=== PATIENT | female | born 1990 | race Caucasian/White ===

== ENCOUNTER 2020-03-29 02:45 | Emergency (ER) | payer SELFPAY ==
--- NOTE | ~2020-03-29 | CT_ITS ---
EXAMINATION: CT abdomen pelvis w con DATE: 03/29/2020 03:46 INDICATION: Abdomen pain TECHNIQUE: Computed tomography (CT) of the abdomen and pelvis was performed with 100 cc Omnipaque 350 intravenous contrast. The dose-length product was 343.40 mGy-cm. Automated exposure control and iter ative reconstruction technique were employed. COMPARISON: CT dated 05/16/2016. FINDINGS: Lung bases are unremarkable. No significant pleural or pericardial effusion. Heart size nor mal. Mild gallbladder distention. No secondary findings to suggest cholecystitis. Small subcentimeter hypodensity right hepatic lobe, most likely benign. The spleen, pancreas, adrenal glands are unremar kable. There are bilateral renal cysts. Nonobstructive bowel gas pattern. No significant vascular abn ormality. No lymphadenopathy. Bladder dawson mildly prominent, likely due to underdistention. Cystitis less favored. No free air or free fluid. IMPRESSION: 1. Mild gallbladder distention, nonspecific. No secondary findings to suggest cholecystitis. Correlat e clinically. 2: Mild bladder wall prominence which is most likely due to underdistention rather than cystitis. Reviewed, dictated and finalized at location A. CE ENGINEER IMPRESSION: 1. Mild gallbladder distention, nonspecific. No secondary findings to suggest c holecystitis. Correlate clinically. 2: Mild bladder wall prominence which is most likely due to underdistention rat her than cystitis.
[2020-03-29 02:49] VITALS: BP 136/86; PULSE 97; RESP 12; TEMP 36.4; O2SAT 97
[2020-03-29] MEDS: ONDANSETRON INJ 4 MG/2 ML VIAL IV PUSH (03:15)
[2020-03-29] MEDS: MORPHINE SULFATE (*CRX) 4 MG/ML INJ IV PUSH (03:15)
[2020-03-29] MEDS: SODIUM CHLORIDE 0.9% IV 1,000 ML 999 ML IV CONT (03:15)
[2020-03-29 03:16] LABS: Basophils Absolute Auto 0.1 K/mm3 (0.0-0.1); Basophils Percent Auto 0.6 % (0.2-1.2); Eosinophils Absolute Auto 0.3 K/mm3 (0-0.3); Eosinophils Percent Auto 3.3 % (0-4.4); Hematocrit 45.7 % (37.0-47.0); Immature Granulocyte Absolute 0.02 K/mm3 (0.00-0.031); Immature Granulocyte Percent A 0.2 % (0-0.5); Lymphocytes Absolute Auto 4.14 K/mm3 (0.9-3.2); Lymphocytes Percent Auto 42.6 % (18.3-44.2); Mean Corpuscular Hemoglobin 33.1 pg (26-34); Mean Corpuscular Volume 94.4 fl (80-100); Mean Platelet Volume 8.5 fl (7.4-10.4); Monocytes Absolute Auto 0.6 K/mm3 (0.1-0.6); Monocytes Percent Auto 6.4 % (2.6-8.5); Neutrophils Absolute Auto 4.6 K/mm3 (1.3-6.7); Neutrophils Percent Auto 46.9 % (45.5-73.1); Platelet Count Result 320 k/mm3 (150-375); Red Blood Count 4.84 M/mm3 (4.2-5.4); Red Cell Distribution Width 11.6 % (11.5-14.5); White Blood Count 9.7 K/mm3 (4.5-10.0)
[2020-03-29 03:32] LABS: Alanine Aminotransferase 32 U/L (4-35); Albumin Level 4.6 g/dL (3.5-5.1); Alkaline Phosphatase 68 U/L (38-126); Anion Gap 9 mmol/L (8-16); Aspartate Amino Transferase 34 U/L (14-36); Bilirubin,Total 1.2 mg/dL (0.2-1.3); Blood Urea Nitrogen 14 mg/dL (7-17); Calcium 10.2 mg/dL (8.4-10.2); Carbon Dioxide 28 mmol/L (22-30); Chloride 101 mmol/L (98-107); Estimated CRCL calculation 88 ml/min; Estimated Glomerular Filt Rate > 60; Glucose 104 mg/dL (65-105); Lipase 99 U/L (23-300); Sodium 138 mmol/L (137-145)
[2020-03-29 03:47] LABS: Add Urine Microscopic? YES; Amorphous Sediment Urine Few; Appearance Urine Cloudy (Clear); Bacteria Urine Trace /hpf; Bilirubin Urine Negative (Negative); Blood Urine Negative (Negative); Color Urine Yellow (Yellow); Glucose Urine UA Negative (Negative); Ketones Urine Negative (Negative); Leukocyte Esterase Ur Negative LEU/UL (Negative); Nitrate Urine Negative (Negative); Protein Urine Negative (Negative); RBC Urine 0-2 /hpf (0-2); Squamous Epithelial Cell Urine Few /hpf (Few); Urobilinogen Urine Negative mg/dL (<2.0); WBC Urine 0-3 /hpf
--- NOTE | 2020-03-29 04:17 | ED.GENADULT ---
HPI - General Adult General Chief complaint: Abdominal Pain Stated complaint: Flank/abd pain Time Seen by Provider: 03/29/20 03:00 History of Present Illness HPI narrative: Patient 29-year-old female who presents the emergency department with chief complaint of right flank and right upper quadrant pain. The patient states the pain began this evening states that earlier tonight she ate a cheeseburger and fries patient reports that no nausea with it denies fever chills denies prior abdominal surgical history reports that her last menstrual period has been within the last month. The patient denies vaginal discharge. Patient denies radiation of the pain to the right lower quadrant denies pain in the right lower quadrant. Patient reports the pain is improved by anything nor is it worsened by anything Related Data Allergies Allergy/AdvReac Type Severity Reaction Status Date / Time No Known Allergies Allergy Verified 03/29/20 02:52 Review of Systems Review of Systems: Narrative: A 10 system review of systems was completed on the patient and is negative except for what is stated in the HPI. Nursing and ancillary documentation was reviewed. PMFSH Past Medical History Medical History ADHD MARIIA (generalized anxiety disorder) Irritable bowel syndrome with constipation Lupus Family History Family History Sibling Family history of attention deficit hyperactivity disorder (ADHD) Social History Social History Smoking status: Never smoker Second hand tobacco smoke exposure: No Alcohol intake: never Substance use: former Substance use type: marijuana Gender identity (if verbalized by the patient): Female Exam Narrative: Exam Narrative: GENERAL: Well-appearing, well-nourished, and in no acute distress. HEAD: Normocephalic, atraumatic. EYES: PERRLA and EOMI. ENT: Nares clear, no rhinorrhea or epistaxis. Mucous membranes moist. NECK: Supple. CHEST: Clear to auscultation. No respiratory distress. HEART: Regular rate and rhythm. No murmur heard. Normal peripheral pulses. ABDOMEN: Soft, nontender, nondistended, normal active bowel sounds. EXTREMITIES: Normal range of motion. No edema. SKIN: Warm, dry, no rash. NEURO: No focal deficits. Alert and oriented x3. PSYCH: Normal mood and affect. Course Course Emergency Course: CT scan of the abdomen pelvis showed evidence of copious amounts of stool. Vital Signs Vital signs: Vital Signs Temperature 36.4 C 03/29/20 02:49 Pulse Rate 97 03/29/20 02:49 Respiratory Rate 12 03/29/20 02:49 Blood Pressure 136/86 03/29/20 02:49 Pulse Oximetry 97 03/29/20 02:49 Temperature 36.4 C 03/29/20 02:49 Pulse Rate 97 03/29/20 02:49 Respiratory Rate 12 03/29/20 02:49 Blood Pressure 136/86 03/29/20 02:49 Pulse Oximetry 97 03/29/20 02:49 Medical Decision Making Vital Signs Vital Signs: Vital Signs Temperature 36.4 C 03/29/20 02:49 Pulse Rate 97 03/29/20 02:49 Respiratory Rate 12 03/29/20 02:49 Blood Pressure 136/86 03/29/20 02:49 Pulse Oximetry 97 03/29/20 02:49 Temperature 36.4 C 03/29/20 02:49 Pulse Rate 97 03/29/20 02:49 Respiratory Rate 12 03/29/20 02:49 Blood Pressure 136/86 03/29/20 02:49 Pulse Oximetry 97 03/29/20 02:49 Lab Data Result diagrams: 03/29/20 03:07 03/29/20 03:07 Labs: Lab Results 03/29/20 03/29/20 03/29/20 Range/Units 03:07 03:07 03:32 WBC 9.7 (4.5-10.0) K/mm3 RBC 4.84 (4.2-5.4) M/mm3 Hgb 16.0 H (12.0-15.0) g/dL Hct 45.7 (37.0-47.0) % MCV 94.4 (80-100) fl MCH 33.1 (26-34) pg MCHC 35.0 (32-36) g/dl RDW 11.6 (11.5-14.5) % Plt Count 320 (150-375) k/mm3 MPV 8.5 (7.4-10.4) fl Immature Gran % (Auto) 0.2 (0-0.5)
[2020-03-29] MEDS: FAMOTIDINE 20 MG/2 ML VIAL IV PUSH (04:41)
[2020-03-29] MEDS: MAGNESIUM CITRATE 300 ML BTL PO (04:41)
[2020-03-29 05:06] VITALS: BP 127/78; PULSE 77; RESP 18; O2SAT 99
== END 2020-03-29 05:00 | disposition home or self-care (01) ==
PROVIDERS: Emergency Provider Emergency Medicine; PCP Family Medicine
DX: R10.84 Generalized abdominal pain (principal); K59.00 Constipation, unspecified; K29.00 Acute gastritis without bleeding
CPT/HCPCS: 36415; 74177; 80053; 81001; 81025; 83690; 85025; 96361; 96374; 96375; 99284; A9270; J2270; J2405; J7030; Q9967

== ENCOUNTER 2021-10-19 10:58 | Emergency (ER) | payer OTHER, SELFPAY ==
[2021-10-19 11:14] VITALS: BP 120/68; PULSE 96; RESP 16; TEMP 36.3; O2SAT 99
--- NOTE | 2021-10-19 11:22 | ED.FEMALEGU ---
HPI - Female Genitourinary General Chief complaint: Urogenital-Female Stated complaint: Bladder infection Time Seen by Provider: 10/19/21 11:22 Source: patient and RN notes reviewed Mode of arrival: ambulatory Limitations: no limitations History of Present Illness HPI Narrative: 30-year-old female presents to the [facility] with strong smelling urine, lower abdominal cramping. Patient denies a normal frequency and urgency. States that when she does urinate she does have a discomfort. Reports history of UTIs but this 1 feels little different. Symptoms started yesterday. Denies any vaginal discharge or pain. Denies fevers, chest pain. In no acute distress, appears nontoxic Last menstrual period was last week. Denies any chance of . Related Data Allergies Allergy/AdvReac Type Severity Reaction Status Date / Time No Known Allergies Allergy Verified 10/05/21 11:27 Review of Systems Review of Systems: All systems reviewed & are unremarkable except as noted in HPI and below Constitutional: Constitutional: Reports no additional constitutional complaints, Denies chills and Denies fever(s) Eyes: Eyes: Reports no additional eye complaints ENT: Reports system reviewed and no additional complaints, except as documented Cardiovascular: Cardiovascular: Reports no additional cardiovascular complaints Respiratory: Respiratory: Reports no additional respiratory complaints Gastrointestinal: Gastrointestinal: Reports no additional gastrointestinal complaints Genitourinary: Genitourinary: Reports as per HPI, Reports dysuria, Denies pelvic pain, Denies flank pain, Denies urinary incontinence and Denies vaginal discharge Musculoskeletal: Musculoskeletal: Reports no additional musculoskeletal complaints Integumentary/Breasts: Skin/Breast: Reports system reviewed and no additional complaints, except as docu Neurologic: Reports system reviewed and no additional complaints, except as documented Psychiatric: Psychiatric: Reports no additional psychiatric complaints Allergic/Immunologic: Allergic/Immunologic: Reports no additional allergic/immunologic complaints PMF Past Medical History Medical History ADHD MARIIA (generalized anxiety disorder) Irritable bowel syndrome with constipation Lupus Family History Family History Sibling Family history of attention deficit hyperactivity disorder (ADHD) Social History Social History Smoking status: Never smoker Second hand tobacco smoke exposure: No Alcohol intake: never Substance use: former Substance use type: marijuana Gender identity (if verbalized by the patient): Female Comments At the time of my signature, I reviewed and agree with the nursing past medical, surgical, social, and family history. There is no relevant family history pertinent to the patient complaint. Exam Const: General: healthy appearing, no acute distress and alert Nutritional Appearance: well nourished Orientation/consciousness: patient oriented x3 Limitations: no limitations HENMT: Head: normal to inspection Ears: external ears normal Eyes: General: appearance normal, both eyes and all related structures Pupils: Equal, round and reactive pupils present Neck: Neck: normal visual inspection, no lymphadenopathy and no meningeal signs Chest: Chest palpation & inspection: normal inspection of the chest Resp: Effort & Inspection: normal respiratory effort and no use of accessory muscles Auscultation: clear to auscultation bilaterally Cardio: Rate: regular rate Rhythm: regular rhythm GI: GI Palp: Yes Soft to palpation and No Tenderness to palpation present (GI) Back/Spine/Pelvis: Cervical Spine: normal cervical lordosis Thoracic/Lumbar Spine: thoracic and lumbar spine normal to inspection Skin: General skin exam: nor
== END 2021-10-19 11:42 | disposition home or self-care (01) ==
PROVIDERS: Emergency Provider Nurse Practitioner
DX: R30.0 Dysuria (principal); F90.9 Attention-deficit hyperactivity disorder, unspecified type
CPT/HCPCS: 81003; 99212; G0463

== ENCOUNTER 2022-08-06 09:35 | Emergency (ER) | payer OTHER, SELFPAY ==
--- NOTE | ~2022-08-06 | XR_ITS ---
XR knee LT min 4V 08/06/2022 09:55 INDICATION: Left hip pain PROCEDURE: 4 views left knee COMPARISON: No prior studies for comparison. FINDINGS: Fracture, dislocation or subluxation is not identified. The soft tissues appear within norm al limits. No foreign bodies are identified. IMPRESSION: 1: NO ACUTE BONE OR JOINT ABNORMALITY IDENTIFIED. Reviewed, dictated and finalized at location A.
[2022-08-06 09:35] VITALS: BP 141/69; PULSE 80; RESP 16; TEMP 36.7; O2SAT 99
--- NOTE | 2022-08-06 10:32 | ED.GENADULT ---
HPI - General Adult General Chief complaint: Extremity Injury, Lower Stated complaint: L KNEE INJURY Time Seen by Provider: 08/06/22 09:50 History of Present Illness HPI narrative: 31-year-old female presented to the emergency department for evaluation of left knee pain. Patient states she has been working hard at the gym and is unsure if she has a minor injury. Patient states that she was drinking some alcohol on Sunday and got a bike ride but has no specific incident of knee injury. Patient states when she woke up on Sunday she was having knee pain and the knee pain continued to worsen throughout the course of the day. Patient states she does have medial left knee pain that is worsened with ambulation. Patient states she does have difficulty straightening the knee. Related Data Allergies Allergy/AdvReac Type Severity Reaction Status Date / Time No Known Allergies Allergy Verified 10/19/21 14:23 Review of Systems Review of Systems: All systems reviewed & are unremarkable except as noted in HPI and below PMFSH Past Medical History Medical History ADHD MARIIA (generalized anxiety disorder) Irritable bowel syndrome with constipation Lupus Family History Family History Sibling Family history of attention deficit hyperactivity disorder (ADHD) Social History Social History Smoking status: Never smoker Second hand tobacco smoke exposure: No Alcohol intake: never Substance use: former Substance use type: marijuana Living arrangements: with family Occupation/Education: occupation Gender identity (if verbalized by the patient): Female Exam Narrative: APPEARANCE: Well appearing, no pain, no distress, well-nourished. HEAD: normocephalic, atraumatic. EYES: PERRLA/EOMI, conjunctivae clear. NOSE: Normal no drainage NECK: Supple. No adenopathy, no masses. RESPIRATORY: Airway patent, respirations nonlabored. Clear to auscultation bilaterally, no rales, rhonchi, wheezing. CARDIOVASCULAR: Regular rate and rhythm without murmurs rubs or gallops. ABDOMINAL: Soft, nontender, nondistended, normal bowel sounds MUSCULOSKELETAL: Moves all extremities. Medial left knee tenderness to palpation. No significant effusion. No deformity. NEURO: Alert. Cranial nerves II through XII intact. Grossly intact SKIN: Warm, dry. Normal Color Course Course Emergency Course: 31-year-old female presented the ED for evaluation of left knee pain. X-rays were negative for acute fracture or dislocation. Patient was provided medications for pain control. Patient and family were updated on the results of the x-rays and plan for treatment for home. Patient was provided crutches and a knee immobilizer for stability and limited weightbearing. Patient was encouraged of close follow-up with her primary care physician and was recommended that she may need additional follow-up with orthopedics and an outpatient MRI to evaluate for a ligament strain. Patient family are comfortable with this plan. Vital Signs Vital signs: Vital Signs Temperature 98.1 F 08/06/22 09:35 Pulse Rate 80 08/06/22 09:35 Respiratory Rate 16 08/06/22 09:35 Blood Pressure 141/69 H 08/06/22 09:35 Pulse Oximetry 99 08/06/22 09:35 Oxygen Delivery Room Air 08/06/22 09:35 Temperature 98.1 F 08/06/22 09:35 Pulse Rate 80 08/06/22 09:35 Respiratory Rate 16 08/06/22 09:35 Blood Pressure 141/69 H 08/06/22 09:35 Pulse Oximetry 99 08/06/22 09:35 Oxygen Delivery Room Air 08/06/22 09:35 Medical Decision Making Differential Diagnosis Differential Diagnosis: Ligament injury, meniscus injury, knee strain, knee effusion, tibial fracture, distal femur fracture. Vital Signs Vital Signs: Vital Signs Temperature 98.1 F 08/06/22 09:35 Pulse Rate 80 05/
[2022-08-06] MEDS: CYCLOBENZAPRINE HCL 10 MG TABLET PO (10:47)
[2022-08-06] MEDS: HYDROcodone/acetaminophen (*CRX) 5-325 MG TABLET 1 TAB PO (10:47)
== END 2022-08-06 10:58 | disposition home or self-care (01) ==
PROVIDERS: Emergency Provider Emergency Medicine; PCP Family Medicine
DX: M23.92 Unspecified internal derangement of left knee (principal); K58.1 Irritable bowel syndrome with constipation; F90.9 Attention-deficit hyperactivity disorder, unspecified type; F41.1 Generalized anxiety disorder
CPT/HCPCS: 73564; 99283; A9270

== ENCOUNTER 2023-01-24 15:55 | Emergency (ER) | payer OTHER, SELFPAY ==
[2023-01-24 16:06] VITALS: BP 122/72; PULSE 72; RESP 16; TEMP 36.9; O2SAT 100
--- NOTE | 2023-01-24 16:45 | ED.BACK ---
HPI - Back Pain/Injury General Chief Complaint: Urogenital-Female Stated Complaint: UTI Time Seen by Provider: 01/24/23 15:57 Source: patient Mode of arrival: ambulatory Limitations: no limitations History of Present Illness HPI Narrative: Clarissa is a 32-year-old female patient presenting to the clinic today with complaints of possible UTI. She reports she is having some bilateral flank/back pain over the last 4 days. She reports she drank a lot over the weekend and is concerned that she may have urinary tract infection. She denies any urinary symptoms. No fever or chills. States when she massages the area does feel better but she feels as though it may be more the muscular and is concerned about urinary tract infection. Related Data Allergies Allergy/AdvReac Type Severity Reaction Status Date / Time No Known Allergies Allergy Verified 01/24/23 16:06 Review of Systems Review of Systems: Pertinent positives per HPI. Patient denies any fever, chills, rash, headache, visual changes, dizziness, cough, runny nose, sore throat, shortness of breath, chest pain, palpitations, nausea, vomiting, diarrhea, constipation, abdominal pain, or any urinary issues. PMFSH Past Medical History Medical History ADHD MARIIA (generalized anxiety disorder) Irritable bowel syndrome with constipation Lupus MCL sprain of left knee Family History Family History Sibling Family history of attention deficit hyperactivity disorder (ADHD) Social History Social History Smoking status: Never smoker Second hand tobacco smoke exposure: No Alcohol intake: never Substance use: former Substance use type: marijuana Living arrangements: with family Occupation/Education: occupation Gender identity (if verbalized by the patient): Female Comments At the time of my signature, I reviewed and agree with the nursing past medical, surgical, social, and family history. There is no relevant family history pertinent to the patient complaint. Exam Narrative: General: Well-developed, well nourished, in no apparent distress Head: Normocephalic, atraumatic. Cardio: Regular rate and rhythm, s1 and s2 normal, no murmur appreciated. Resp: Clear to auscultation bilaterally, no rhonchi, rales, wheezing or rubs. Musculoskeletal: No deformity,tender to palpation over the bilateral flanks, grossly normal range of motion, muscle strength strong and equal, peripheral pulse strong, no edema, no cyanosis, normal gait and station Course Course Emergency Course: Portions of this record may have been created with voice recognition software. Level of Care: Express Care Visit Vital Signs Vital signs: Vital Signs Temperature 36.9 C 01/24/23 16:06 Pulse Rate 72 01/24/23 16:06 Respiratory Rate 16 01/24/23 16:06 Blood Pressure 122/72 01/24/23 16:06 Pulse Oximetry 100 01/24/23 16:06 Oxygen Delivery Room Air 01/24/23 16:06 Temperature 36.9 C 01/24/23 16:06 Pulse Rate 72 01/24/23 16:06 Respiratory Rate 16 01/24/23 16:06 Blood Pressure 122/72 01/24/23 16:06 Pulse Oximetry 100 01/24/23 16:06 Oxygen Delivery Room Air 01/24/23 16:06 Vital signs reviewed MDM - Back Pain/Injury MDM Narrative Medical decision making narrative: At the time of visit patient is resting comfortably on the exam table. Urinalysis was performed was negative for any sign of infection, protein, or blood. Specific gravity was 1.015. I suspect patient has back muscle strain. Supportive measures were discussed with the patient she voiced understanding discharge instructions and agrees to treatment plan. Differential Diagnosis Differential diagnosis: Likely lumbar radiculopathy, sciatica, strain of lumbar region and pyelonephritis Lab Data Labs: Urine Glucose
== END 2023-01-24 16:52 | disposition home or self-care (01) ==
PROVIDERS: Emergency Provider Nurse Practitioner Family; PCP Family Medicine
DX: M54.50 Low back pain, unspecified (principal); F90.9 Attention-deficit hyperactivity disorder, unspecified type
CPT/HCPCS: 81003; 99213; G0463

== ENCOUNTER 2023-09-06 15:55 | Outpatient (CLI) | payer BC, SELFPAY ==
--- NOTE | ~2023-09-06 | XR_ITS ---
2 VIEWS THORACOLUMBAR SPINE Ordering provider: Zulema Jones PA-C History: . M54.9 - Dorsalgia, unspecified . Comparison: None. FINDINGS: VERTEBRAL BODIES: Normal height and alignment. No visible fracture or subluxation. DISK SPACES: Normal. SOFT TISSUES: Normal. IMPRESSION: No acute osseous abnormality of the thoracolumbar spine. Reviewed, dictated and finalized at location A.
== END 2023-09-06 15:56 | disposition home or self-care (01) ==
LOC: ANHIMG 15:56
PROVIDERS: PCP Family Medicine; Visit Provider Physician Assistant Medical
DX: M54.9 Dorsalgia, unspecified (principal)
CPT/HCPCS: 72070

== ENCOUNTER 2023-10-10 14:11 | Outpatient (CLI) | payer BC, SELFPAY ==
--- NOTE | ~2023-10-10 | XR_ITS ---
AP view of the pelvis and AP and lateral views of the bilateral hips Clinical history: Pain Findings: No acute fracture or dislocation is seen. Osseous alignment is anatomic. Bilateral hip and SI joint spaces are preserved. Soft tissues are unremarkable. Impression: No significant abnormality is seen. Reviewed, dictated and finalized at location . Impression: No significant abnormality is seen.
== END 2023-10-10 14:12 | disposition home or self-care (01) ==
LOC: ANHIMG 14:14
PROVIDERS: PCP Family Medicine; Visit Provider Internal Medicine
DX: M45.0 Ankylosing spondylitis of multiple sites in spine (principal); G47.00 Insomnia, unspecified; R07.89 Other chest pain; Z79.1 Long term (current) use of non-steroidal anti-inflammatories (NSAID)
CPT/HCPCS: 73521

== ENCOUNTER 2024-11-24 18:43 | Emergency (ER) | payer OTHER, SELFPAY ==
[2024-11-24] VITALS (9 sets, daily range): BP systolic 114–140; BP diastolic 79–91; PULSE 94–145; RESP 15–43; TEMP 36.4; O2SAT 94–100
--- NOTE | ~2024-11-24 | XR_ITS ---
EXAMINATION: XR chest 2V DATE: 11/24/2024 19:20 INDICATION: Shortness of breath TECHNIQUE: frontal and lateral views of the chest were obtained. COMPARISON: Chest radiograph dated 01/22/2015 FINDINGS: Calcified nodule left lower lung zone consistent with old granulomatous disease. No other airspace opacities, pulmonary edema, pleural effusion or pneumothorax. The cardiomediastinal silhouette is normal. Mild upper thoracic dextrocurvature. IMPRESSION: 1. No acute cardiopulmonary disease. Reviewed, dictated and finalized at location A.
--- OUTSIDE RECORDS SUMMARY | 2024-11-24 18:45 | XMS_ITS | Clinical Summary ---
Author Organization [id number] Address [address] [place] [id number] Phone Care Team Providers Care Medical Transcriptionist Name Role Phone Kodak Roger MD Primary Care Provider Allergies No known active allergies Medications dextroamphetami ne-amphetamine (ADDERALL) 12.5 mg tablet take 1 tablet by oral route every day before breakfast 0 0 5 Active ketorolac (TORADOL) 10 mg tablet take 1 tablet by oral route every 6 hours as needed for up to 5 days total use 0 0 6 Active HYDROcodone-elizabeth taminophen (NORCO) 5-325 mg per tablet take 1 by Oral route 2 times every day 0 0 6 Active naproxen (NAPROSYN,ALEVE ) 500 mg tablet take 1 tablet by oral route 2 times every day with food 0 0 6 Active LORazepam (ATIVAN) 0.5 mg tablet take 1 Tablet by oral route every day as needed 0 0 6 Active dicyclomine (BENTYL) 20 mg tabletIndicatio ns:Irritable Bowel Syndrome 7 Active LINZESS 145 mcg capsule 7 Active sertraline (ZOLOFT) 50 mg tablet 7 Active SUPREP BOWEL PREP KIT 17.5-3.13-1.6 gram recon solnIndications :Bowel Evacuation 7 Active Active Problems Problem Noted Date Diagnosed Date Positive NIMESH (antinuclear antibody) 09/15/2016 Overview (09/15/2016): Previous 1:80 titer in speckled pattern. Repeat was negative with no other autoantibodies Assessment & Plan (09/15/2016 6:31 PM CDT): Previous 1:80 titer in speckled pattern. Repeat was negative with no other autoantibodies. At this point I see no clinical evidence of an underlying lupus or other autoimmune connective tissue disease although she is concerned of this because of her nonspecific complaints. Will be recheck the NIMESH in the NIMESH profile. Polyarthralgia 09/15/2016 Assessment & Plan (09/15/2016 6:34 PM CDT): She does have some nonspecific pain complaints more so in the forearms down to the hands. Symptoms really worsened over last several days although is improved today. She has no active synovitis on exam although does have some tenderness palpation from the wrist up to the forearms. She does have history of psoriasis and this could represent psoriatic arthritis with possible enthesitis causing the pain up in her forearms. Will obtain labs as below. And obtain ultrasound of her left hand to evaluate for inflammatory changes. Is not using any analgesics. F/u 2 weeks. 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 Gender Identity Not on file Sexual Orientation Not on file Obstetrics History Last Filed Vital Signs Vital Sign Reading Time Taken Comments Blood Pressure 110/72 09/15/2016 2:50 PM CDT Pulse 78 09/15/2016 2:50 PM CDT Temperature - - Respiratory Rate - - Oxygen Saturation - - Inhaled Oxygen Concentration - - Weight 58.1 kg (128 lb) 09/15/2016 2:50 PM CDT Height 162.6 cm (5' 4) 11/03/2015 1:31 PM CDT Body Mass Index 21.97 11/03/2015 1:31 PM CDT Plan of Treatment Not on file Insurance [employer] OPEN ACCESS Care Teams Medical Transcriptionist Relationship Specialty Start Date End Date Kodak Roger MD [address] [facility] [address] [place] [address] PCP - General 09/09/15
--- OUTSIDE RECORDS SUMMARY | 2024-11-24 18:45 | XMS_ITS | Clinical Summary ---
Author Organization [facility] Address [address] [place] [place] [address] Care Team Providers Care Electrical Hardware Engineer Name Role Phone Kodak Roger MD Primary Care Provider [phone] Source Comments [facility],non-owned Affiliates and Associated Physician Practices is amultiple site organization consisting of ambulatory clinics and hospital sitesin [place], [place], [place] and [place]. This disclosure is being madepursuant to the Care Everywhere program and may not contain all information available regarding this patient. Last updated 17.[facility] Allergies No known active allergies Medications * Be aware that medications may not be up to date on this document. Alwaysverify current medications with the patient. 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 [employer] Gender Identity Not on file Sexual Orientation Not on file Last Filed Vital Signs Vital Sign Reading Time Taken Comments Blood Pressure 120/70 03/18/2018 12:15 PM SUPERVISOR [employer] Pulse 100 03/18/2018 12:15 PM SUPERVISOR [employer] Temperature 36.4 C (97.6 F) 03/18/2018 12:15 PM SUPERVISOR [employer] Respiratory Rate 18 03/18/2018 12:15 PM SUPERVISOR [employer] Oxygen Saturation 97% 03/18/2018 12:15 PM SUPERVISOR [employer] Inhaled Oxygen Concentration - - Weight 54.4 kg (120 lb) 03/18/2018 12:15 PM SUPERVISOR [employer] Height 162.6 cm (5' 4) 03/18/2018 12:15 PM SUPERVISOR [employer] Body Mass Index 20.6 03/18/2018 12:15 PM SUPERVISOR [employer] Plan of Treatment Health Maintenance Due Date Last Done Comments HIV SCREENING 2005 HEPATITIS C SCREENING 11/29/2008 DTAP/TDAP/TD VACCINES (1 - Tdap) 2009 HEPATITIS B VACCINE (1 of 3 - 19+ 3-dose series) 2009 HPV VACCINE (1 - 3-dose SCDM series) 2017 COVID-19 VACCINE (1 - 2023-2 5 season) 2023 DEPRESSION SCREENING 03/26/2024 INFLUENZA VACCINE (#1) 2024 ZOSTER VACCINE (1 of 2) 2040 HIB VACCINE Aged Out No longer eligi ble based on patient's age to complete this topic MENINGOCOCCAL (Group B) VACC INE SHARED DECISION-MAKING Aged Out No longer eligibl e based on patient's age to complete this topic MENINGOCOCCAL GROUPS A/C/Y/W VACCINE Aged Out No longer eligible b ased on patient's age to complete this topic PNEUMOCOCCAL VACCINE Aged Out No long er eligible based on patient's age to complete this topic Insurance ANTHEM Care Teams Electrical Hardware Engineer Relationship Specialty Start Date End Date Kodak Roger MD [address] [place] [address] PCP - General Family Medicine 11/26/14
--- OUTSIDE RECORDS SUMMARY | 2024-11-24 18:45 | XMS_ITS | Clinical Summary ---
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 Gender Identity Not on file Sexual Orientation Not on file Plan of Treatment Health Maintenance Due Date Last Done Comments Hepatitis C Virus (HCV) Screening 1990 Pap Smear 12/05/2011 Human Papillomavirus (HPV) Immunization (1 - 3-dose SCDM series) 2017 Cervical Cancer Screening (CCS) 2020 HPV/Cotest 2020 SARS-COV-2 Immunization ( season) 2023 Influenza Immunization (#1) 2024 Respiratory Syncytial Virus (RSV) Immunization (Adult) (1 - 1-dose 75+ series) 2065 Hepatitis B Immunization Completed 002, 02/05/2001, 01/08/2001 DTaP/Tdap/Td Immunization Discontinued 01/03/2006 TdaP Immunization Completed 01/03/2006 Meningococcal Immunization (ACWY) Aged Out No longer eligible based on patient's age to complete this topic Pneumococcal Immunization Combined Aged Out No longer eligible based on patient's age to complete this topic Rotavirus Immunization Aged Out No lo nger eligible based on patient's age to complete this topic
--- NOTE | 2024-11-24 18:48 | ECG_ITS ---
Test Date: 2024-11-24 18:51:09 Measurements Intervals [place] Rate: 134 P: 66 ND: 112 QRS: 72 QRSD: 92 T: 30 QT: 372 QTc: 556 Interpretive Statements SINUS TACHYCARDIA WITH SHORT ND INTERVAL NONSPECIFIC ST & T-WAVE ABNORMALITY Electronically Signed On 11-25-2024 07:29:26 CDT by Giovanni Braswell D.O
[2024-11-24 18:58] LABS: Hematocrit 40.3 % (37.0-47.0); Hemoglobin 14.1 g/dL (12.0-15.0); Immature Granulocyte Percent A 0.2 % (0-0.5); Lymphocytes Absolute Auto 5.81 K/mm3 (0.9-3.2); Mean Corpuscular HGB Conc 35.0 g/dl (32-36); Mean Corpuscular Hemoglobin 34.8 pg (26-34); Mean Corpuscular Volume 99.5 fl (80-100); Nucleated Red Blood Cells Absolute Auto 0.000 K/mm3 (0.0-0.012); Nucleated Red Blood Cells Perc 0.0 % (0.0-0.2); Platelet Count Result 316 k/mm3 (150-375); Red Blood Count 4.05 M/mm3 (4.2-5.4); White Blood Count 10.4 K/mm3 (4.5-10.0)
[2024-11-24] MEDS: SODIUM CHLORIDE 0.9% IV 1,000 ML 999 ML IV CONT (19:01)
[2024-11-24] MEDS: FAMOTIDINE 20 MG/2 ML VIAL IV PUSH (19:03)
[2024-11-24 19:14] LABS: Alanine Aminotransferase 20 U/L (6-35); Albumin Level 4.6 g/dL (3.5-5.1); Alkaline Phosphatase 60 U/L (38-126); Anion Gap 8 mmol/L (4-12); Aspartate Amino Transferase 33 U/L (14-36); Bilirubin,Total 1.4 mg/dL (0.2-1.3); Blood Urea Nitrogen 19 mg/dL (7-17); Calcium 9.5 mg/dL (8.4-10.2); Carbon Dioxide 26 mmol/L (22-30); Chloride 101 mmol/L (98-107); Estimated CRCL calculation 83 ml/min; Estimated Glomerular Filt Rate > 60; Glucose 122 mg/dL (65-110); Lipase 92 U/L (23-300); Potassium 3.7 mmol/L (3.4-5.0); Sodium 135 mmol/L (137-145); Total Protein 7.2 g/dL (6.3-8.2)
[2024-11-24 19:21] LABS: Schistocytes None Seen
[2024-11-24 19:22] LABS: INR 1.0; Partial Thromboplastin Time 24.8 Seconds (22.3-36.8); Prothrombin Time 12.8 Seconds (11.1-14.7)
[2024-11-24 19:23] LABS: Troponin I < 0.012 ng/mL (0.000-0.034)
--- NOTE | 2024-11-24 20:18 | ED_ITS ---
HPI - Allergic Reaction General Chief complaint: Allergic Reaction Stated complaint: allergic reaction Time Seen by Provider: 11/24/24 18:50 History of Present Illness HPI narrative: Patient is a 33-year-old female who presents ER with concern for allergic reaction. She began feeling some shortness of breath and swelling of her tongue after dinner. She had eaten Southwestern chicken in [place] her eyes. She also had smokes marijuana after dinner. She had some of this same strain of marijuana previously without issue. It is from a dispensary. No known food allergies. No rash or itching. No fevers or chills or sweats.. Tachycardic. She is have some tightness in the chest. Related Data Home Medications ?Medication ?Instructions ?Recorded ?Confirmed ?Last Taken ?Type diclofenac sodium 75 mg 75 mg PO BID 12/20/23 Unknown History tablet,delayed release folic acid 1 mg tablet 1 mg PO DAILY 12/20/2308/06 Unknown History methotrexate sodium 2.5 mg tablet 15 mg PO WEEKLY 11/2508/06/24 Unknown History pantoprazole 40 mg tablet,delayed mg PO 12/20/2308/06 Unknown History release golimumab 12.5 mg/mL intravenous IV 08/05/24 08/06/24 Unknown History solution (Simponi ARIA) Allergies Allergy/AdvReac Type Severity Reaction Status Date / Time No Known Allergies Allergy Verified 11/24/24 18:50 Review of Systems 2 Review of Systems: All systems reviewed & are unremarkable except as noted in HPI and below Constitutional: Constitutional: Reports no additional constitutional complaints ENT: Reports system reviewed and no additional complaints, except as documented Cardiovascular: Cardiovascular: Reports no additional cardiovascular complaints Respiratory: Respiratory: Reports no additional respiratory complaints Genitourinary: Genitourinary: Reports no additional female genitourinary complaints [facility] Past Medical History Medical History MCL sprain of left knee ADHD Irritable bowel syndrome with constipation Lupus MARIIA (generalized anxiety disorder) Family History Family History Sibling Family history of attention deficit hyperactivity disorder (ADHD) Social History Social History Smoking status: Never smoker Second hand tobacco smoke exposure: No Alcohol intake: never Substance use: former Substance use type: marijuana Living arrangements: with family Occupation/Education: occupation Gender identity (if verbalized by the patient): Female Exam 2 Narrative: GENERAL: Anxious-appearing, well-nourished, and in no acute distress. HEAD: Normocephalic, atraumatic. ENT: Mucous membranes moist. Normal appearing posterior oropharynx without edema of the tongue or posterior oropharynx. NECK: Supple. CHEST: Clear to auscultation. No respiratory distress. HEART: Tachycardic regular. Normal peripheral pulses. ABDOMEN: Soft, nontender, nondistended. EXTREMITIES: Normal range of motion. No edema. SKIN: Warm, dry, no rash. NEURO: Alert and oriented x3. PSYCH: Normal mood and affect. Course Course Emergency Course: Symptoms markedly improved after Benadryl and Pepcid. Receive some IV fluid as well. Labs with nonspecific elevation white blood cell count and lymphocytic predominance. Otherwise unremarkable and patient is appropriate for discharge home. Discussed return precautions. Difficult to ascertain what caused her reaction tonight. Vital Signs Vital signs: Vital Signs Temperature 97.6 F 11/24/24 18:46 Pulse Rate 137 H 11/24/24 18:46 Respiratory Rate 38 H 11/24/24 18:46 Blood Pressure 140/91 H 11/24/24 18:46 Pulse Oximetry 100 11/24/24 18:46 Oxygen Delivery Room Air 11/24/24 18:46 Temperature 97.6 F 11/24/24 18:46 Pulse Rate 95 11/24/24 19:32 Respiratory Rate 17 11/24/24 19:32 Blood Pressure 115/79 11/24/24 19:32 Pulse Oximetry 98 11/24/24 19:32 Oxygen Delivery Room Air 11/24/24 18:54 MDM - Allergic Reaction Lab Data 11/24/24 18:51 11/24/24 18:51 Labs: Lab Results 11/24/24 Range/Units 18:51 WBC 10.4 H (4.5-10.0) K/mm3 RBC 4.05 L (4.2-5.4) M/mm3 Hgb 14.1 (12.0-15.0) g/dL Hct 40.3 (37.0-47.0) % MCV 99.5 (80-100) fl MCH 34.8 H (26-34) pg MCHC 35.0 (32-36) g/dl RDW 11.4 L (11.5-14.5) % Plt Count 316 (150-375) k/mm3 MPV 8.2 (7.4-10.4) fl Immature Gran % (Auto) 0.2 (0-0.5) % Neut % (Auto) 32.5 L (45.5-73.1) % Lymph % (Auto) 55.8 H (18.3-44.2) % Allen % (Auto) 9.0 H (2.6-8.5) % Eos % (Auto) 1.9 (0-4.4) % Baso % (Auto) 0.6 (0.2-1.2) % Lymph # (Auto) 5.81 H (0.9-3.2) K/mm3 Allen # (Auto) 0.9 H (0.1-0.6) K/mm3 Eos # (Auto) 0.2 (0-0.3) K/mm3 Baso # (Auto) 0.1 (0.0-0.1) K/mm3 Abs Immat Gran (auto) 0.02 (0.00-0.031) K/mm3 Absolute Neuts (auto) 3.4 (1.3-6.7) K/mm3 Absolute Nucleated RBC 0.000 (0.0-0.012) K/mm3 Band Neutrophils % Not Reportable Nucleated RBC % 0.0 (0.0-0.2) % Atypical Lymphocytes Present Platelet Estimate Adequate (Adequate) Schistocytes None seen PT 12.8 (11.1-14.7) Seconds INR 1.0 APTT 24.8 (22.3-36.8) Seconds Sodium 135 L (137-145) mmol/L Potassium 3.7 (3.4-5.0) mmol/L Chloride 101 (98-107) mmol/L Carbon Dioxide 26 (22-30) mmol/L Anion Gap 8 (4-12) mmol/L BUN 19 H (7-17) mg/dL Creatinine 0.78 (0.7-1.0) mg/dL Estim Creat Clear Calc 83 ml/min Estimated GFR > 60 (59 - ) Glucose 122 H (65-110) mg/dL Calcium 9.5 (8.4-10.2) mg/dL Total Bilirubin 1.4 H (0.2-1.3) mg/dL AST 33 (14-36) U/L ALT 20 (6-35) U/L Alkaline Phosphatase 60 (38-126) U/L Troponin I < 0.012 (0.000-0.034) ng/mL Total Protein 7.2 (6.3-8.2) g/dL Albumin 4.6 (3.5-5.1) g/dL Lipase 92 (23-300) U/L Imaging Data Radiologist's impression: ITS Impressions Chest X-Ray 11/24/24 19:32 IMPRESSION: 1. No acute cardiopulmonary disease. ECG Data EKG #1: ECG completion date: 11/24/24 ECG completion time: 18:51 tachycardia (134), sinus rhythm, non-specific ST changes, normal QRS and NL axis Discharge Plan Discharge Clinical Impression: Allergic reaction Patient Disposition: Home Condition: Stable Instructions: General Allergic Reaction (ED) Additional Instructions: You may continue taking Benadryl 25 mg every 6 hours for the next 24 hours. You may also take Zyrtec daily. It is unknown what caused the reaction. Follow-up with your primary care doctor. He may need to see an application development specialist. You may also continue Pepcid to help with any allergic reaction symptoms that may persist. Patient Language: Cypriot Prescriptions: New famotidine [Pepcid] 20 mg tablet 20 mg PO BID Qty: 10 0RF No Action methotrexate sodium 2.5 mg tablet 15 mg PO WEEKLY diclofenac sodium 75 mg tablet,delayed release (DR/EC) 75 mg PO BID pantoprazole 40 mg tablet,delayed release (DR/EC) PO folic acid 1 mg tablet 1 mg PO DAILY Simponi ARIA 12.5 mg/mL solution IV fluticasone propionate 50 mcg/actuation spray,suspension 1 spray intranasal Q12H Qty: 16 0RF Rx Instructions: administer into each nostril azelastine 137 mcg (0.1 %) spray,non-aerosol 137 mcg intranasal Q12H Qty: 30 0RF Rx Instructions: administer into each nostril benzonatate 100 mg capsule 200 mg PO TID PRN (Reason: cough) Qty: 60 0RF dextroamphetamine-amphetamine [Adderall] 10 mg tablet 10 mg PO BID Qty: 60 0RF Follow-up/Referrals: Kodak Roger MD [Primary Care Provider, Family Practice] - 1 Week
== END 2024-11-24 20:41 | disposition home or self-care (01) ==
PROVIDERS: Emergency Provider Emergency Medicine; PCP Family Medicine
DX: T78.40XA Allergy, unspecified, initial encounter (principal); R00.0 Tachycardia, unspecified; F90.9 Attention-deficit hyperactivity disorder, unspecified type; F41.9 Anxiety disorder, unspecified; M32.9 Systemic lupus erythematosus, unspecified
CPT/HCPCS: 36415; 71046; 80053; 83690; 84484; 85025; 85610; 85730; 93005; 96361; 96374; 96375; 99284; J1200; J7030